=== PATIENT | female | born 1960 | race Caucasian/White ===

== ENCOUNTER 2019-05-04 16:27 | Emergency (ER) | payer OTHER, MEDICAID ==
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
== END 2019-05-04 17:14 | disposition home or self-care (01) ==
LOC: JD.ED 16:27
DX: Z04.1 Encounter for examination and observation following transport accident (principal); F41.9 Anxiety disorder, unspecified; Z87.891 Personal history of nicotine dependence; Z88.0 Allergy status to penicillin; Z79.82 Long term (current) use of aspirin; Z79.899 Other long term (current) drug therapy
CPT/HCPCS: 99283

== ENCOUNTER 2019-05-05 16:35 | Emergency (ER) | payer OTHER, MEDICAID ==
[2019-05-05] MEDS ORDERED: Ketorolac 30 MG/ML SDV IVPUSH ONE (17:36)
[2019-05-05] MEDS ORDERED: Sodium Chloride 0.9% 10 ML Syringe FLUSH PRN (17:36)
[2019-05-05] MEDS ORDERED: diphenhydrAMINE 50 MG/ML SDV IVPUSH ONE (17:36)
[2019-05-05] MEDS ORDERED: Metoclopramide 10 MG/2 ML SDV IVPUSH ONE (17:36)
[2019-05-05] MEDS ORDERED: Sodium Chloride 0.9% 1,000 ML IV SCH (17:45)
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
== END 2019-05-05 19:22 | disposition home or self-care (01) ==
LOC: JD.ED 16:35
DX: S13.4XXA Sprain of ligaments of cervical spine, initial encounter (principal); F41.9 Anxiety disorder, unspecified; Z88.0 Allergy status to penicillin; Z79.82 Long term (current) use of aspirin; Z79.899 Other long term (current) drug therapy; Z90.710 Acquired absence of both cervix and uterus; Z87.891 Personal history of nicotine dependence; V89.2XXA Person injured in unspecified motor-vehicle accident, traffic, initial encounter
CPT/HCPCS: 96361; 96374; 96375; 99283; J1200; J1885; J2765; J7040

== ENCOUNTER 2019-07-31 11:09 | Emergency (ER) | payer MEDICAID ==
--- NOTE | 2019-07-31 11:41 | EDM.PDOC ---
ED HPI GENERAL MEDICAL PROBLEM - General Chief Complaint: Skin Complaint Stated Complaint: WOUND CHECK/POST SURGERY Time Seen by Provider: 07/31/19 11:27 Source of Information: Reports: Patient, Family History Limitations: Reports: No Limitations - History of Present Illness INITIAL COMMENTS - FREE TEXT/NARRATIVE: Patient's unfortunate 58-year-old female who presents emergency Department today with complaint of drainage from surgical incision. She reports she is status post a craniotomy on 07/13/[address] Rob Cardenas in [facility]. Patient reports that she went back on the of this month and had her sutures removed from the surgical incision on her neck. She reports that she 's had pain and swelling to the site ever since this morning she awoke and had intense pain followed by an alleviation of pain and then she felt like she had fluid running down the back of her neck. Patient has a dressing in place this time and has serous fluid draining from a small dehiscence on her surgical incision site she has mild erythema surrounding if the dressing is removed the wound leaks serous fluid continuously. Patient reports that she has been having difficulty seeing since the surgery and then after she had this ruptured she's been able to see better - Related Data Allergies Allergy/AdvReac Type Severity Reaction Status Date / Time Penicillins Allergy Anaphylactic Verified 07/31/19 11:14 Shock varenicline [From Chantix] Allergy Other Verified 07/31/19 11:15 Home Meds: Home Meds Aspirin [Adult Low Dose Aspirin EC] 81 mg PO DAILY 05/04/19 [History] buPROPion [Wellbutrin] 150 mg PO BID 05/04/19 [History] Metoprolol Succinate [Toprol XL 50mg] 50 mg PO DAILY 07/31/19 [History] Ondansetron [Zofran ODT] 4 mg PO Q6H PRN 07/31/19 [History] Past Medical History HEENT History: Reports: Other (See Below) Other HEENT History: glasses 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 History: Reports: COPD 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: Musculoskeletal History: Reports: Back Pain, Chronic Neurological History: Reports: Other (See Below) Other Neuro History: tumor removal Psychiatric History: Reports: Anxiety Endocrine/Metabolic History: Reports: Diabetes, Type II Other Endocrine/Metabolic History: borderline diabetic - Past Surgical History Female Surgical History: Reports: Section, Hysterectomy Social & Family History - Family History Family Medical History: Noncontributory - Tobacco Use Smoking Status *Q: Former Smoker Used Tobacco, but Quit: Yes Month/Year Tobacco Last Used: june - Caffeine Use Caffeine Use: Reports: Coffee, Soda, Tea ED ROS GENERAL - Review of Systems Review Of Systems: See Below Constitutional: Denies: Fever, Chills Musculoskeletal: Reports: Neck Pain ED EXAM, SKIN/RASH Exam: See Below Exam Limited By: No Limitations General Appearance: Alert, WD/WN, Mild Distress, Obese Nose: Normal Inspection, Normal Mucosa, No Blood Throat/Mouth: Normal Inspection, Normal Lips, Normal Teeth, Normal Gums, Normal Oropharynx, Normal Voice, No Airway Compromise Head: Atraumatic, Normocephalic Neck: Other (Surgical incision well approximated with mild surrounding erythema at the C1-C2 level with a puncture-type dehiscence with serous drainage) Cardiovascular: Normal Peripheral Pulses, Regular Rate, Rhythm, No Edema, No Gallop, No JVD, No Murmur, No Rub GI/Abdominal: Normal Bowel Sounds Back Exam: Normal Inspection, Full Range of Motion, NT Extremities: Normal Inspection, Normal Range of Motion, Non-Tender, No Pedal Edema, Normal Capillary Refill Neurological: Alert, Oriented, CN II-XII Intact Skin: Warm, Dry, No Rash ED SKIN PROCEDURES - Additional/Other Procedure(s) Other (Free Text) Procedure(s): Wound dehiscence repair: Betadine prep, local anesthesia lidocaine 1% 1 mL, dehiscence was closed with #1 4-0 Ethilon [id number] stitch, no drainage noted after suture was applied, patient tolerated procedure well dressing by nursing Course - Vital Signs Last Recorded V/S: Last Vital Signs Temp 97.5 F 07/31/19 11:15 Pulse 83 07/31/19 11:15 Resp 18 07/31/19 11:15 BP 122/74 07/31/19 11:15 Pulse Ox 98 07/31/19 11:15 - Orders/Labs/Meds Orders: Active Orders 24 hr Category Date Time Status Communication Order [RC] STAT Care 07/31/19 14:10 Active Head wo Cont [CT] Stat Exams 07/31/19 16:04 Ordered Meds: Medications Discontinued Medications Generic Name Dose Route Start Last Admin Trade Name Freq PRN Reason Stop Dose Admin Lidocaine HCl 10 ml 07/31/19 16:11 07/31/19 16:23 Xylocaine 1% INJECT 07/31/19 16:12 10 ml ONETIME ONE Administration Ondansetron HCl 4 mg 07/31/19 14:10 07/31/19 14:14 Zofran Odt PO 07/31/19 14:11 4 mg ONETIME ONE Administration - Re-Assessments/Exams Free Text/Narrative Re-Assessment/Exam: 07/31/19 16:[address] Jennings in neurosurgery at [facility] who accepts patient in transfer, we are concerned about the patient having a possible cerebral spinal fluid leak patient needs air transfer to [place]'s intensive care unit for neurosurgical evaluation 07/31/19 16:42 Departure - Departure Time of Disposition: 16:40 Disposition: DC/Tfer to [facility] Clinical Impression: Wound dehiscence Post-operative complication Qualifiers: Surgical complication system/body Area: subcutaneous tissue Surgical complication type: unspecified - Discharge Information Referrals: Saundra Vieira NP [Primary Care Provider] - Forms: ED Department Discharge Sepsis Event Note - Evaluation Sepsis Screening Result: No Definite Risk - Focused Exam Vital Signs: Vital Signs Temp Pulse Resp BP Pulse Ox 07/31/19 11:15 97.5 F 83 18 122/74 98 Date Exam was Performed: 07/31/19 Time Exam was Performed: 16:42 - My Orders Last 24 Hours: My Active Orders 07/31/19 14:10 Communication Order [RC] STAT 07/31/19 16:04 Head wo Cont [CT] Stat - Assessment/Plan Last 24 Hours: My Active Orders 07/31/19 14:10 Communication Order [RC] STAT 07/31/19 16:04 Head wo Cont [CT] Stat
[2019-07-31] MEDS ORDERED: Ondansetron 4 MG Tab.DIS PO ONE (14:10)
[2019-07-31] MEDS ORDERED: Lidocaine 1% 10 ML MDV INJECT ONE (16:11)
--- NOTE | 2019-08-02 09:17 | CT ---
Head CT Technique: Multiple axial sections through the brain were obtained. Intravenous contrast was not utilized. Comparison: No prior intracranial imaging is available. Findings: Ventricles along with basal cisterns and sulci over the convexities appear within normal limits for the patient's age. Diffuse diminished density noted within the periventricular and subcortical white matter which is most likely due to small vessel ischemic demyelination change. Previous suboccipital craniotomy is noted with its superficial soft tissue air which is felt compatible with fairly recent surgery. Mild amount of adjacent intracranial air is also noted. No evidence of intracranial hemorrhage. No midline shift or mass effect is seen. Mastoid sinuses and visualized paranasal sinuses are clear. Atherosclerotic calcification is seen within the carotid siphon. No acute calvarial abnormality is appreciated. Impression: 1. Soft tissue air posteriorly presumably from previous surgery. Previous suboccipital craniotomy is noted. Small amount of intracranial air is seen. 2. Senescent change as noted above. 3. Nothing acute is definitely appreciated on noncontrast head CT exam. Diagnostic code #2 This report was dictated in [place] Standard Time I agree with preliminary report issued by [facility] ([facility] report finalized on 07/31/19, 6:25 PM Central Time)
== END 2019-07-31 19:03 ==
LOC: JD.ED 11:09
DX: T81.32XA Disruption of internal operation (surgical) wound, not elsewhere classified, initial encounter (principal); E11.9 Type 2 diabetes mellitus without complications; J44.9 Chronic obstructive pulmonary disease, unspecified; F41.9 Anxiety disorder, unspecified; Z87.891 Personal history of nicotine dependence; Z88.0 Allergy status to penicillin; Z88.8 Allergy status to other drugs, medicaments and biological substances; Z79.899 Other long term (current) drug therapy; Z79.82 Long term (current) use of aspirin
CPT/HCPCS: 12020; 70450; 99284; A9270; J2001